=== PATIENT | male | born 1955 | race Caucasian/White ===

== ENCOUNTER → 2019-05-11 | Outpatient (CLI) | payer OTHER ==
[~2019-05-11] MED LIST: ASPIR 8181 MG PO; CHANTIX1 EACH PO; DAYPRO600 MG; DICLOFENAC SODI75 MG; DIFLUNISAL500 MG; ETODOLAC200 MG; FLURBIPROFEN50 MG; HYDROCODONE BT1 EAC1; IBUPROFEN 200200 M1; INDOMETHACIN 5050 M1; KETOPROFEN50 MG; MECLOFENAMATE S50 MG; MEFENAMIC ACID250 MG; MELOXICAM7.5 MG; NABUMETONE 750750 M1; NORCO 5-325 TA1 EACH PO; ONDANSETRON HCL4 M2; PIROXICAM10 MG; PLAVIX 75 MG TA75 M1 PO; PRAVACHOL40 MG PO; SULINDAC 150 M150 MG; [UNRECOGNIZED DRUG - OTHER]; [UNRECOGNIZED DRUG - OTHER]
[2019-05-11 09:04] LABS: CREATININE 1.1 mg/dL (0.7-1.3)
== END ==
LOC: CAT 07:55
PROVIDERS: Family Medicine
DX: J43.9 Emphysema, unspecified (principal); I70.0 Atherosclerosis of aorta; J84.10 Pulmonary fibrosis, unspecified; J92.9 Pleural plaque without asbestos; K44.9 Diaphragmatic hernia without obstruction or gangrene; Z68.22 Body mass index [BMI] 22.0-22.9, adult

== ENCOUNTER → 2021-02-20 | Outpatient (CLI) | payer OTHER ==
[~2021-02-20] MED LIST changes: +ASA81BEC PO; +LEVAQUIN 500 M500 M5 PO; +LISINOPRIL2.5 MG PO; +PLAVIX 75 MG TA75 MG PO; +PREDNISONE 10 M10 M1 PO; +PROAIR HFA8.5 GM INH; +TESSALON PERLE100 M1 PO
== END ==
LOC: CAT 07:31
PROVIDERS: ATTEND Family Medicine
DX: Z13.6 Encounter for screening for cardiovascular disorders (principal); I25.10 Atherosclerotic heart disease of native coronary artery without angina pectoris; E78.00 Pure hypercholesterolemia, unspecified